=== PATIENT | female | born 1970 | race Caucasian/White ===

== ENCOUNTER 2016-11-11 06:02 | Observation (INO) | payer BC, OTHER ==
[~2016-11-11 06:02] MED LIST: Buffered Lidocaine 0.9% SYRIN* 5 ML/SYR SYRINGE INTRADERM ONE
[2016-11-11] MEDS ORDERED: ceFAZolin 2 GM PREMIX(*) 2 GM/50 ML BAG IVPB ONE (06:05)
[2016-11-11] MEDS ORDERED: Buffered Lidocaine 0.9% SYRIN* 5 ML/SYR SYRINGE ONE (06:06)
[2016-11-11] MEDS ORDERED: Bupivacaine 0.25% W/EPI* 50 ML VIAL ONE ×2 (07:10→07:11)
[2016-11-11] MEDS ORDERED: fentaNYL* 50 MCG/ML 2 ML VIAL (100 MCG VIAL) ONE ×2 (07:29→08:49)
[2016-11-11] MEDS ORDERED: Midazolam* 1 MG/ML 5 ML VIAL (5 MG) ONE (07:29)
[2016-11-11] MEDS ORDERED: Lidocaine 2% PF * 5 ML VIAL ONE (08:09)
[2016-11-11] MEDS ORDERED: Dexamethasone IV* 4 MG/ML 1 ML (4 MG) ONE (08:09)
[2016-11-11] MEDS ORDERED: Propofol* 10 MG/ML 20 ML BTL IV PUSH ONE (08:09)
[2016-11-11] MEDS ORDERED: Rocuronium* 10 MG/ML VIAL ONE (08:09)
[2016-11-11] MEDS ORDERED: Ondansetron INJ* 2 MG/ML VIAL ONE (08:09)
[2016-11-11] MEDS ORDERED: Famotidine IV* 10 MG/ML 2 ML (20 mg) ONE (08:09)
[2016-11-11] MEDS ORDERED: Desmopressin Acetate* 20 MCG in NS 0.9% 50 ML* 50 ML IVPB ONE ×2 (09:00→12:00)
[2016-11-11] MEDS ORDERED: HYDROmorphone* 1 MG/ML 1 ML SYR ONE (10:01)
[2016-11-11] MEDS ORDERED: Acetaminophen ADULT LIQ* 650 MG/20.3 ML UDC ONE (12:16)
[2016-11-11] MEDS ORDERED: Ondansetron INJ* 2 MG/ML VIAL IV PRN (12:57)
[2016-11-11] MEDS: NS 0.9% 1000 ML* 1,000 ML IV SCH (13:26)
[2016-11-11] MEDS ORDERED: diPHENhydraMINE PO* 25 MG PO PRN ×2 (13:26→13:28)
[2016-11-11] MEDS ORDERED: diPHENhydraMINE IV* 50 MG/ML 1 ml VIAL (BENADRYL) IV PRN (13:27)
[2016-11-11] MEDS ORDERED: Al Hydrox/Mg Hydrox/Simet LIQ* 30 ML UDC PO PRN (13:29)
[2016-11-11] MEDS ORDERED: Magnesium Hydroxide LIQ* 30 ML UDC PO PRN (13:30)
[2016-11-11] MEDS: Ondansetron INJ* 2 MG/ML VIAL IV PRN ×2 (15:29→19:29)
--- NOTE | 2016-11-11 16:44 | HP ---
HISTORY AND PHYSICAL: DATE OF ADMISSION: 11/11/16 CHIEF COMPLAINT: Status post bilateral reduction mammoplasty. HISTORY OF PRESENT ILLNESS: Ms. Hills is a pleasant 45-year-old female with a past medical history of qualitative platelet dysfunction who just underwent a bilateral reduction of mammoplasty by Dr. Taylor. The patient was seen in the postoperative area. She reports a mild pain at present, but not too significant. Denies any shortness of breath or nausea. The patient has a history of qualitative platelet dysfunction and is followed by Dr. Bustos, extrusion press operator in [place]. He saw her before a surgery earlier this year, a cholecystectomy and recommended DDAVP prior to and after the surgery and recommended the same for this procedure which the patient did receive. She has had no unusual amount of bleeding during the surgery as per Dr. Taylor. The patient says that she does not react well to narcotics and would like to try to manage her pain with Tylenol alone if possible. PAST MEDICAL HISTORY: History of tobacco abuse and qualitative platelet dysfunction. PAST SURGICAL HISTORY: Cholecystectomy, rectal fistula, and bilateral tubal ligation. HOME MEDICATIONS: 1. Multivitamin 1 tablet by mouth daily. 2. Ferrous sulfate 325 mg by mouth daily. 3. Calcium 500 mg by mouth daily. ALLERGIES: The patient reports no known drug allergies. FAMILY HISTORY: Significant for maternal grandfather with an DE. SOCIAL HISTORY: The patient is a former smoker, quit in August of this year after a 10-pack year smoking history. Denies any alcohol or illicit drug use. REVIEW OF SYSTEMS: A 12-point review of systems negative except as noted in the HPI. PHYSICAL EXAMINATION GENERAL: The patient is a pleasant middle-aged female, lying in bed, in no apparent distress. VITAL SIGNS: In the PACU, heart rate of 95, respiratory rate 18, O2 saturation 97% on 3 L, blood pressure 117/75. HEENT: Head: Normocephalic and atraumatic. Eyes; Pupils are equal, round, and reactive to light and accommodation. Anicteric sclerae. ENT: Dry mucous membranes. No cervical adenopathy. LUNGS: Clear to auscultation bilaterally. No wheezes, rales, or rhonchi. CARDIOVASCULAR: Heart sounds distant through significant dressing but appears regular. Did not appreciate any murmur. ABDOMEN: Soft, obese, nontender, and nondistended. Bowel sounds positive. EXTREMITIES: No cyanosis, clubbing, or edema. NEUROLOGIC: The patient is alert and oriented x3. No focal neurological deficit. SKIN: Warm, dry, and well-perfused. ASSESSMENT AND PLAN: A 45-year-old female with a history of qualitative platelet dysfunction, tobacco abuse, will be admitted under the hospitalist service after undergoing a bilateral reduction mammoplasty by Dr. Taylor. 1. Bilateral reduction mammoplasty. Continue IV fluids for now. IV antiemetics. Discussed with her that we can start with Tylenol alone. However , if her pain is uncontrolled to let us know and we can try something stronger. As noted above, the Claudia did not feel that there was any excessive bleeding during the procedure. 2. Qualitative platelet dysfunction. The patient received DDAVP prior to and after the surgery. We will keep an eye out for any abnormal bleeding overnight. If this happens, could receive a platelet transfusion. We will check a CBC tomorrow understanding this is a qualitative platelet disorder and that the quantity may be normal. 3. DVT prophylaxis. SCDs. 4. Code status. The patient is a full code. Dispo: Likely discharge tomorrow TIME SPENT: Total time spent on this admission 45 minutes with over half the time spent [id number] with the patient in counseling and coordinating care. [id number]/[facility] #: [id number] MTDLois
[2016-11-11] MEDS: Acetaminophen TAB* 325 MG PO PRN (17:09)
[2016-11-12] MEDS: Acetaminophen TAB* 325 MG PO PRN ×2 (03:24→08:49)
[2016-11-12] MEDS: NS 0.9% 1000 ML* 1,000 ML IV SCH (03:25)
[2016-11-12 05:22] LABS: Hematocrit 37 % (35-47); Hemoglobin 12.3 g/dl (12.0-16.0); Mean Corpuscular HGB Conc 34 g/dl (31-36); Mean Corpuscular Hemoglobin 30 pg (27-31); Mean Corpuscular Volume 88 fL (80-97); Mean Platelet Volume 9 um3 (7.4-10.4); Red Blood Count 4.15 10^6/ul (4.0-5.4); Red Cell Distribution Width 13 % (10.5-15); White Blood Count 14.3 10^3/ul (3.5-10.8)
[2016-11-12 05:35] LABS: BUN/Creatinine Ratio 17.9 (8-20); Calcium 8.6 mg/dL (8.6-10.3); EGFR African American 149.2 (>60); Potassium 4.2 mmol/L (3.5-5.0)
--- NOTE | 2016-11-12 08:54 | PN ---
Subjective Date of Service: 11/12/16 Interval History: Patient seen and examined at bedside. Denies fever, chills, shortness of breath , chest discomfort, N/V/D. Pt states that her pain is controlled with Tylenol. Family History: Unchanged from Admission Social History: Unchanged from Admission Past Medical History: Unchanged from Admission Objective Active Medications: Acetaminophen (Tylenol Tab*) 650 mg PO Q4H PRN Reason: PAIN/TEMP>101 Al Hydrox/Mg Hydrox/Simethicone (Maalox Plus*) 30 ml PO Q2H PRN Reason: CONSTIPATION Calcium Carbonate (Calcium Carbonate Tab*) 1,250 mg PO DAILY MANDO Diphenhydramine HCl (Benadryl Po*) 25 mg PO BEDTIME PRN Reason: INSOMNIA Diphenhydramine HCl (Benadryl Iv*) 25 mg IV Q6H PRN Reason: ITCHING Diphenhydramine HCl (Benadryl Po*) 25 mg PO Q6H PRN Reason: ITCHING Ferrous Sulfate (Ferrous Sulfate Tab*) 325 mg PO QAM MANDO Sodium Chloride (Ns 0.9% 1000 Ml*) 1,000 mls @ 75 mls/hr IV PER RATE MANDO Magnesium Hydroxide (Milk Of Magnesia Liq*) 30 ml PO DAILY PRN Reason: CONSTIPATION Multivitamins/Minerals (Theragran/Minerals Tab*) 1 tab PO QAM MANDO Ondansetron HCl (Zofran Inj*) 4 mg IV Q4H PRN Reason: NAUSEA Vital Signs 11/11/16 11/11/16 11/11/16 13:07 13:24 13:39 Temperature 97.0 F 97.0 F Pulse Rate 90 90 Respiratory 16 16 16 Rate Blood Pressure 110/67 110/67 (mmHg) O2 Sat by Pulse 92 92 Oximetry 11/11/16 11/11/16 11/11/16 14:09 15:17 17:08 Temperature 97.1 F 98.1 F 97.5 F Pulse Rate 85 80 73 Respiratory 16 20 20 Rate Blood Pressure 119/71 114/68 111/65 (mmHg) O2 Sat by Pulse 90 94 97 Oximetry 11/11/16 11/11/16 11/11/16 19:08 19:40 20:00 Temperature 98.1 F Pulse Rate 72 Respiratory 20 16 16 Rate Blood Pressure 117/67 (mmHg) O2 Sat by Pulse 96 Oximetry 11/11/16 11/12/16 23:19 03:37 Temperature 97.9 F 98.1 F Pulse Rate 85 61 Respiratory 16 16 Rate Blood Pressure 127/65 115/63 (mmHg) O2 Sat by Pulse 96 95 Oximetry Oxygen Devices in Use Now: None Appearance: NAD, sitting up in bed Ears/Nose/Mouth/Throat: Mucous Membranes Moist Respiratory: Symmetrical Chest Expansion and Respiratory Effort, Clear to Auscultation Cardiovascular: NL Sounds; No Murmurs; No JVD, RRR Abdominal: NL Sounds; No Tenderness; No Distention Extremities: No Edema Skin: No Rash or Ulcers, - - Dressing to chest clean, dry and intact Neurological: Alert and Oriented x 3, NL Muscle Strength and Tone Lines/Tubes/Other Access: Clean, Dry and Intact Peripheral IV - site benign Nutrition: Taking PO's Result Diagrams: 11/12/16 04:47 11/12/16 04:42 Assess/Plan/Problems-Billing Assessment: Ms. Hills is a 45 yo female with PMH significant for qualitative platelet dysfunction and history of tocacco abuse who presented to the hospital for an elective bilateral breast reduction mammoplasty by Dr. Taylor. - Patient Problems (1) Status post bilateral breast reduction Code(s): Z98.890 - OTHER SPECIFIED POSTPROCEDURAL STATES SNOMED Code(s): 208969435 Comment: - POD #1 - Management per Dr. Taylor - Continue pain management (2) Qualitative platelet defect Code(s): D69.1 - QUALITATIVE PLATELET DEFECTS SNOMED Code(s): 529579972 Comment: - Received DDVP prior and after sugery - No signs of abnormal bleeding (3) DVT prophylaxis Code(s): BIG5146 - SNOMED Code(s): 904780950 (4) Full code status Code(s): Z78.9 - OTHER SPECIFIED HEALTH STATUS SNOMED Code(s): 747279458 Status and Disposition: OBV. Stable for discharge to home today.
[2016-11-12] MEDS ORDERED: Calcium Carbonate TAB* 1250 MG (CALCIUM 500 MG) PO SCH (09:00)
[2016-11-12] MEDS ORDERED: Ferrous Sulfate TAB* 325 MG PO SCH (09:00)
[2016-11-12] MEDS ORDERED: Multivitamins/Minerals TAB PO SCH (09:00)
[2016-11-12 09:41] VITALS: BP 109/62
== END 2016-11-12 11:00 | disposition home or self-care (01) ==
LOC: OR 06:02 → SSU 12:49
PROVIDERS: ADMIT Hospitalist; ATTEND Plastic Surgery
PROC: 0HBV0ZZ Excision of Bilateral Breast, Open Approach (ICD-10-PCS; principal; 2016-11-11)
DX: N62 Hypertrophy of breast (principal); D69.1 Qualitative platelet defects; Z87.891 Personal history of nicotine dependence
CPT/HCPCS: 36415; 80048; 85025; 88305; 96374; A9270-GY; G0378; J0690; J1100; J1170; J2250; J2405; J2597; J2704; J3010

== ENCOUNTER 2017-06-09 12:00 | Emergency (ER) | payer BC ==
[2017-06-09 13:16] VITALS: BP 110/85
--- NOTE | 2017-06-09 13:39 | UC ---
Upper Extremity HPI - HPI Summary HPI Summary: L shoulder pain for about 1 week with no injury. Pt then fell this past thursday landing on her L arm which may have aggravated this. It is worse with turning her head to the R which causes pain in L side of neck and radiates into the shoulder. No associated cp or sob. self tx with IB 400mg every 8 hours and with heat. no numb/tingling or weakness to L arm. - History of Current Complaint Chief Complaint: UCUpperExtremity Stated Complaint: LEFT SHOULDER PAIN S/P FALL Time Seen by Provider: 06/09/17 13:18 Hx Obtained From: Patient Hx Last Menstrual Period: 4 yrs ?: No Onset/Duration: Gradual Onset Pain Intensity: 5 Character: Sharp, Aching Aggravating Factor(s): Movement Alleviating Factor(s): Nothing - Allergies/Home Medications Allergies/Adverse Reactions: Allergies Allergy/AdvReac Type Severity Reaction Status Date / Time hayfever Allergy Rash Uncoded 06/09/17 13:01 PMH/Surg Hx/FS Hx/Imm Hx Previously Healthy: Yes - Surgical History Surgical History: Yes Surgery Procedure, Year, and Place: RECTAL FISTULA REPAIR, UTERINE TEAR REPAIR , b/l breast reduction summer 2016, gallbladder 05/2016 - Family History Known Family History: Positive: None - Social History Occupation: Employed Full-time Lives: With Family Alcohol Use: None Substance Use Type: None Smoking Status (MU): Light Every Day Tobacco Smoker Type: Cigarettes Amount Used/How Often: 2 cigarettes daily - Immunization History Most Recent Influenza Vaccination: none Vaccination Up to Date: Yes Review of Systems Constitutional: Negative Skin: Negative Eyes: Negative ENT: Negative Respiratory: Negative Cardiovascular: Negative Gastrointestinal: Negative Genitourinary: Negative Motor: Negative Neurovascular: Negative Musculoskeletal: Other: - pain L side neck/shoulder areas Neurological: Negative Psychological: Negative Is Patient Immunocompromised?: No All Other Systems Reviewed And Are Negative: Yes Physical Exam Triage Information Reviewed: Yes Appearance: Well-Appearing Vital Signs: Initial Vital Signs Temp 98.5 F 06/09/17 13:03 Pulse 66 06/09/17 13:03 Resp 18 06/09/17 13:03 BP 110/85 06/09/17 13:03 Pulse Ox 98 06/09/17 13:03 Vital Signs Reviewed: Yes Eyes: Positive: Conjunctiva Clear ENT: Positive: Normal ENT inspection Neck: Positive: Supple, No Lymphadenopathy, Tenderness @ - L side of trapezius mm Respiratory: Positive: Chest non-tender, Lungs clear, Normal breath sounds Cardiovascular: Positive: RRR, No Murmur, Pulses Normal Abdomen Description: Positive: Nontender, No Organomegaly, Soft Bowel Sounds: Positive: Present Musculoskeletal: Positive: Other: - BUE: no gross deformity, swelling or discoloration. Full s/v/m intact BUE's but active ROM LUE exacerbates pt discomfort. LUE neg drop arm and anterior stress to shoulder. L trapezius mm tenderness on L side of neck. MM tenderness to medial scapular border on L. Spine is without deformity and is non tender with rom intact. Neurological Exam: Normal Neurological: Positive: Alert Psychological: Positive: Age Appropriate Behavior Skin Exam: Normal Diagnostics - Radiology nad/no fx Xray Interpretation: No Acute Changes Upper Extremity Course/Dx - Course Course Of Treatment: no fx or dislocation on xray. trapezius and medial scapular mm discomfort. neg drop arm and anterior stress. will tx nsaid and mm relaxor and f/u pcp for recheck. avoid sling for now. - Differential Dx/Diagnosis Provider Diagnoses: L trapezius mm spasm and L medial scapular mm spasm Discharge - Discharge Plan Condition: Stable Disposition: HOME Prescriptions: Cyclobenzaprine TAB* [Flexeril 10 MG TAB*] 10 mg PO TID 3 Days #10 tab Naproxen [Naprosyn] 500 mg PO BID 7 Days #14 tablet Patient Education Materials: Muscle Strain (ED) Referrals: Sancho Cm NP [Primary Care Provider] - 5 Days
--- NOTE | 2017-06-09 14:01 | RAD ---
INDICATION: Left shoulder injury. TECHNIQUE: 4 views of the left shoulder were obtained. FINDINGS: The bones are in normal alignment. No fracture is seen. Joint spaces appear maintained. IMPRESSION: NO EVIDENCE OF FRACTURE.
== END 2017-06-09 14:16 | disposition home or self-care (01) ==
LOC: UCCORT 12:00
DX: M62.838 Other muscle spasm (principal); W19.XXXA Unspecified fall, initial encounter; Y93.9 Activity, unspecified; Y92.9 Unspecified place or not applicable; F17.210 Nicotine dependence, cigarettes, uncomplicated
CPT/HCPCS: 99212; G0463

== ENCOUNTER 2018-06-18 16:02 | Emergency (ER) | payer BC ==
[2018-06-18 17:28] VITALS: BP 131/82
[2018-06-18 17:52] LABS: Influenza A Molecular NEGATIVE (Negative); Influenza B Molecular NEGATIVE (Negative)
--- NOTE | 2018-06-18 18:10 | ED ---
Influenza-Like Illness - HPI Summary HPI Summary: 47-year-old female presents with 4 day history of headache, body aches, chills, nasal congestion, sinus pressure, clear nasal discharge, postnasal drip, sore throat, and occasional nonproductive cough. States coworkers have tested positive for flu. Denies fever, ear pain, dysphagia, chest pain, shortness of breath, abdominal pain, nausea, vomiting, or diarrhea. - History of Current Complaint Chief Complaint: UCRespiratory Time Seen by Provider: 06/18/18 18:05 Hx Obtained From: Patient - Allergy/Home Medications Allergies/Adverse Reactions: Allergies Allergy/AdvReac Type Severity Reaction Status Date / Time hayfever Allergy Rash Uncoded 06/18/18 17:27 Home Medications: Home Medications Phenylephrine/Dm/Acetaminop/GG [Tylenol Cold-Flu Severe Caplet] 1 each PO [History] PMH/Surg Hx/FS Hx/Imm Hx Previously Healthy: Yes - Denies significant PMH - Surgical History Surgery Procedure, Year, and Place: RECTAL FISTULA REPAIR, UTERINE TEAR REPAIR , b/l breast reduction summer 2016, gallbladder 05/2016 Infectious Disease History: No Infectious Disease History: Denies: Traveled Outside the [place] in Last 30 Days - Family History Known Family History: Positive: Non-Contributory - Social History Occupation: Employed Full-time Lives: Alone Alcohol Use: None Substance Use Type: Reports: None Smoking Status (MU): Light Every Day Tobacco Smoker Type: Cigarettes Amount Used/How Often: 2 cigarettes daily Review of Systems Positive: Chills, Fatigue Negative: Drainage, Erythema Positive: Sore Throat, Nasal Discharge, Other - Sinus pressure. Negative: Ear Ache Negative: Palpitations, Chest Pain Positive: Cough. Negative: Shortness Of Breath Negative: Abdominal Pain, Vomiting, Diarrhea, Nausea Genitourinary: Negative Positive: Myalgia Skin: Negative Positive: Headache All Other Systems Reviewed And Are Negative: Yes Physical Exam - Summary Physical Exam Summary: GENERAL APPEARANCE: Well developed, well nourished, alert and cooperative, and appears to be in no acute distress. EYES: Conjunctiva clear. No drainage. Vision is grossly intact. EARS: External auditory canals and tympanic membranes clear, hearing grossly intact. NOSE: Moderate-severe nasal congestion with clear nasal discharge. Mild frontal sinus tenderness with percussion. THROAT: Mild pharyngeal erythema without tonsilar inflammation, swelling, exudate, or lesions. Uvula midline. Oral cavity normal. Teeth and gingiva in good general condition. NECK: Neck supple, non-tender without lymphadenopathy. CARDIAC: Normal S1 and S2. No S3, S4 or murmurs. Rhythm is regular. There is no peripheral edema, cyanosis or pallor. Extremities are warm and well perfused. Capillary refill is less than 2 seconds. Peripheral pulses intact. LUNGS: Clear to auscultation without rales, rhonchi, wheezing or diminished breath sounds. Cough not observed. ABDOMEN: Positive bowel sounds. Soft, nondistended, nontender. No guarding or rebound. No masses or hepatosplenomegally. MUSKULOSKELETAL: ROM intact to all extremities. No joint erythema or tenderness. Normal muscular development. Normal gait. SKIN: Skin normal color, texture and turgor with no lesions or eruptions. Triage Information Reviewed: Yes Vital Signs On Initial Exam: Initial Vitals Temp Pulse Resp BP Pulse Ox 97.6 F 78 18 131/82 98 06/18/18 17:25 06/18/18 17:25 06/18/18 17:25 06/18/18 17:25 06/18/18 17:25 Vital Signs Reviewed: Yes Diagnostics - Vital Signs Vital Signs Temp Pulse Resp BP Pulse Ox 06/18/18 17:25 97.6 F 78 18 131/82 98 - Laboratory Lab Results: Lab Results 06/18/18 Range/Units 17:40 Influenza A (Rapid) Negative (Negative) Influenza B (Rapid) Negative (Negative) Lab Statement: Any lab studies that have been ordered have been reviewed, and results considered in the medical decision making process. Flu Symptom Course/Dx - Course Course Of Treatment: 47-year-old female presents with 4 day history of headache , body aches, chills, nasal congestion, sinus pressure, clear nasal discharge, postnasal drip, sore throat, and occasional nonproductive cough. States coworkers have tested positive for flu. Denies fever, ear pain, dysphagia, chest pain, shortness of breath, abdominal pain, nausea, vomiting, or diarrhea. Afebrile. Mildly elevated blood pressure otherwise vital signs stable. Exam reveals an adult female in no acute distress. Moderate to severe nasal congestion with clear nasal discharge, frontal sinus tenderness, mild pharyngeal erythema without tonsillar swelling or exudate, no cervical lymphadenopathy, papular clear breath sounds, and otherwise unremarkable exam. Rapid flu test was negative. Suspect a viral URI and I'm recommending symptomatic treatment at this time. She is to follow-up with her primary care provider in 5-7 days if symptoms do not improve. Anticipatory guidance and warning symptoms were reviewed with the patient. Verbalizes understanding and agrees with plan of care. - Diagnoses Differential Diagnosis/HQI/PQRI: Positive: Bronchitis, Influenza, Pneumonia, Upper Respiratory Infection Provider Diagnoses: Viral URI Discharge - Sign-Out/Discharge Documenting (check all that apply): Patient Departure All imaging exams completed and their final reports reviewed: No Studies - Discharge Plan Condition: Stable Disposition: HOME Patient Education Materials: Upper Respiratory Infection (ED) Referrals: Sancho Cm NP [Primary Care Provider] - 5 Days (Follow up in 5-7 days if symptoms do not improve.) Additional Instructions: The rapid flu test performed in the clinic today was negative for the flu. Your history and exam are consistent with a viral upper respiratory infection. Viral infections do not respond to antibiotics and are limited to the treatment of symptoms. Viral infections typically run their course in 7-10 days. Get plenty of rest. Drink plenty of fluids to avoid dehydration. Use a saline rinse kit such as Neti Pot or NeilMed at least twice a day to help thin secretions and promote drainage of the sinuses. Use fluticasone (Flonase) nasal spray 2 sprays each nostril once daily. Use an over the counter decongestant such as Sudafed as needed for congestion. Take over the counter acetaminophen (Tylenol) or ibuprofen (Advil, Motrin) according to directions as needed for pain or fever. Use salt water gargles several times a day if you have a sore throat. You may also use Chloraseptic spray or Cepacol lonzenges according to directions which contain a numbing medication and can provide some temporary relief from your sore throat. Follow up with your primary care provider in 5-7 days if symptoms persist. Seek immediate medical attention in the emergency room if you have fever greater than 100.5 F despite taking acetaminophen or ibuprofen, have chest pain , difficulty breathing, are unable to swallow, or have any worsening of symptoms. - Billing Disposition and Condition Condition: STABLE Disposition: Home - Attestation Statements Provider Attestation: I was available for consult. This patient was seen by the SHAAN. The patient was not presented to, seen by, or examined by me. EK
== END 2018-06-18 18:22 | disposition home or self-care (01) ==
LOC: UCCORT 16:02
DX: J06.9 Acute upper respiratory infection, unspecified (principal); F17.210 Nicotine dependence, cigarettes, uncomplicated; Z91.09 Other allergy status, other than to drugs and biological substances
CPT/HCPCS: 99211; G0463

== ENCOUNTER 2018-11-09 13:30 | Emergency (ER) | payer BC ==
[2018-11-09 13:52] VITALS: BP 111/73
--- NOTE | 2018-11-09 13:54 | UC ---
Throat Pain/Nasal Samm HPI - HPI Summary HPI Summary: 47-year-old female who has had fever, chills, sore throat over the past 3 days. 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 - History of Current Complaint Chief Complaint: UCRespiratory Stated Complaint: SORE THROAT Time Seen by Provider: 11/09/18 13:48 Hx Obtained From: Patient Hx Last Menstrual Period: "NONE IN 5 YEARS" ?: No Onset/Duration: Gradual Onset Severity: Moderate Pain Intensity: 9 Cough: None Associated Signs & Symptoms: Positive: Fever - Allergies/Home Medications Allergies/Adverse Reactions: Allergies Allergy/AdvReac Type Severity Reaction Status Date / Time hayfever Allergy Rash Uncoded 11/09/18 13:48 PMH/Surg Hx/FS Hx/Imm Hx Previously Healthy: Yes - Surgical History Surgical History: Yes Surgery Procedure, Year, and Place: RECTAL FISTULA REPAIR, UTERINE TEAR REPAIR , b/l breast reduction summer 2016, gallbladder 05/2016 - Family History Known Family History: Positive: None, Non-Contributory - Social History Alcohol Use: None Substance Use Type: None Smoking Status (MU): Light Every Day Tobacco Smoker Type: Cigarettes Amount Used/How Often: 2 cigarettes daily - Immunization History Most Recent Influenza Vaccination: none Vaccination Up to Date: Yes Review of Systems All Other Systems Reviewed And Are Negative: Yes Constitutional: Positive: Fever, Chills ENT: Positive: Sore Throat Is Patient Immunocompromised?: No Physical Exam Triage Information Reviewed: Yes Appearance: Well-Appearing, No Pain Distress, Well-Nourished Vital Signs: Initial Vital Signs Temp 97 F 11/09/18 13:48 Pulse 89 11/09/18 13:48 Resp 20 11/09/18 13:48 BP 111/73 11/09/18 13:48 Pulse Ox 96 11/09/18 13:48 Vital Signs Reviewed: Yes Eyes: Positive: Conjunctiva Clear ENT: Positive: Pharyngeal erythema, TMs normal, Tonsillar swelling, Tonsillar exudate, Uvula midline. Negative: Trismus, Muffled voice, Hoarse voice Neck: Positive: Supple, Nontender, No Lymphadenopathy Respiratory: Positive: Lungs clear, Normal breath sounds, No respiratory distress, No accessory muscle use Cardiovascular: Positive: RRR, No Murmur, Pulses Normal, Brisk Capillary Refill Musculoskeletal Exam: Normal Neurological Exam: Normal Psychological Exam: Normal Skin Exam: Normal Throat Pain/Nasal Course/Dx - Course Course Of Treatment: Rapid strep test was negative. I am going to treat the patient with an antibiotic because of the exposure to a grandchild with strep within the past week, she's had fever, her throat is erythematous with exudate and tonsillar enlargement. She is to follow-up with her primary care provider in 3 or 4 days if no improvement. - Differential Dx/Diagnosis Provider Diagnosis: Tonsillitis Discharge - Sign-Out/Discharge Documenting (check all that apply): Patient Departure All imaging exams completed and their final reports reviewed: No Studies - Discharge Plan Condition: Fair Disposition: HOME Prescriptions: Amoxicillin PO (*) [Amoxicillin 875 MG (*)] 875 mg PO BID 10 Days #20 tab Patient Education Materials: Tonsillitis (ED) Forms: *Work Release Referrals: Sancho Cm NP [Primary Care Provider] - Additional Instructions: Rest, increase fluids, Tylenol every 4 hours and Motrin every 8 hours for pain or fever. Follow-up with your primary care provider if no improvement in 3 or 4 days. - Billing Disposition and Condition Condition: FAIR Disposition: Home
== END 2018-11-09 14:18 | disposition home or self-care (01) ==
LOC: UCCORT 13:30
DX: J03.90 Acute tonsillitis, unspecified (principal); Z20.828 Contact with and (suspected) exposure to other viral communicable diseases; F17.210 Nicotine dependence, cigarettes, uncomplicated
CPT/HCPCS: 87651; 99212; G0463